=== PATIENT | female | born 1975 | race Caucasian/White ===

== ENCOUNTER 2023-11-17 09:52 | Emergency (ER) | payer BC, SELFPAY ==
[2023-11-17 10:00] VITALS: BP 116/83; PULSE 70; RESP 18; TEMP 36.4; O2SAT 96; BMI 31.1
--- NOTE | 2023-11-17 10:20 | EXP.UTC ---
Discharge Plan Disposition Patient Disposition: Home, Self-Care Condition: Good Prescriptions Prescriptions: New prednisone 10 mg tablet 10 mg PO BID Qty: 10 0RF amoxicillin-pot clavulanate 875-125 mg Tablet 1 tab PO Q12H Qty: 20 0RF No Action Mavyret 100-40 mg tablet 1 tab PO DAILY Referrals Follow up/Referrals: Finn Schmidt MD [Primary Care Provider] - See instructions Activity Restrictions/Add. Instructions Additional Instructions/Restrictions: Start oral antibiotics and steriods tomorrow Follow up with your Family Doctor if no improvement or any worsening of symptoms Make sure to drink plenty of fluids Straight to ER if any life threatening symptoms Clinical Impressions Clinical Impression: Sinusitis Qualifiers: Sinusitis location: unspecified location Chronicity: unspecified Qualified Code(s): J32.9 - Chronic sinusitis, unspecified Otitis media Qualifiers: Otitis media type: unspecified Laterality: right Qualified Code(s): H66.91 - Otitis media, unspecified, right ear Instructions Patient Instructions: Ear Infections (Alternative Therapy), Sinusitis, Middle Ear Infection, DI for Sinusitis Discharge ED Provider: Yancy Hannah [facility] General Stated complaint: Rt ear pain, swelling Mode of Arrival: Ambulatory Source of Information: Patient Limitations: No Limitations Time Seen by Provider: 11/17/23 10:20 Description of Symptoms (Recalled from Triage Doc. by RN): Pt has been having right ear pain, and right sided facial swelling. HEENT Symptoms (Recalled from RN notes): Yes Resp Symptoms (Recalled from RN notes): No Skin Symptoms (Recalled from RN notes): No MS Symptoms (Recalled from RN notes): No Functional Status (Recalled from RN notes): n/a History of Present Illness Provider Complaint: Patient states that she has been having sinus pain and pressure and pain and pressure in her right ear States that she has been fighting it for about a week but noticed she looked puffy under her right eye so she came in worried she may be having some swelling so she came in Related Data Home Medications Medication Instructions Recorded Confirmed glecaprevir 100 mg-pibrentasvir 40 1 tab PO DAILY 11/17/23 11/17/23 mg tablet (Mavyret) Previous Rx's Medication Instructions Recorded amoxicillin 875 mg-potassium 1 tab PO Q12H #20 tabs 11/17/23 clavulanate 125 mg tablet prednisone 10 mg tablet 10 mg PO BID #10 tabs 11/17/23 Allergies Allergy/AdvReac Type Severity Reaction Status Date / Time No Known Allergies Allergy Verified 11/17/23 10:09 Worker's Comp Is this a Worker's Comp case?: No [facility] Disclaimer: The information contained in this section may have been updated after the patient was seen, as this information can be updated by other users. Social History Smoking Status: Current every day smoker tobacco type: cigarettes alcohol intake: never current occupational status: employed Travel in the last 8 weeks: None ROS Obtained: Yes All systems reviewed & no additional complaints except as documented and Yes Systems reviewed as appropriate & no additional complaints except as documented Constitutional Constitutional: Reports system reviewed and no additional complaints, except as documented and Reports as per HPI ENT Ears, Nose, Mouth, and Throat: Reports system reviewed and no additional complaints, except as documented, Reports as per HPI, Reports otalgia, Reports sinus pain and Reports sinus pressure Cardiovascular Cardiovascular: Reports system reviewed and no additional complaints, except as documented and Reports as per HPI Respiratory Respiratory: Reports system reviewed and no additional complaints, except as documented and Reports as per HPI Physical Exam General General appearance: alert and in no apparent distress ENT ENT exam: Present mucous membranes moist Expanded ENT Exam TM/Canal exam: Right TM: erythema and bulging Nose exam: Present sinus tenderness Respiratory Respiratory exam: Present normal lung sounds bilaterally; Absent respiratory distress or wheezes Cardiovascular Cardiovascular exam: Present regular rate, normal rhythm and normal heart sounds Neurological Exam Neurological exam: Present alert, oriented X3 and normal gait Medical Decision Making [place] Inquiry Pt receiving controlled substance: No [place] was queried for this patient: No Vital Signs: 11/17/23 10:00 Temperature 97.6 F Temperature Source Oral Pulse Rate [Right Radial] 70 Respiratory Rate 18 Blood Pressure [Right Arm] 116/83 Blood Pressure Mean [Right Arm] 94 Blood Pressure Source [Right Arm] Automatic Cuff Blood Pressure Position [Right Arm] Sitting 02 Sat by Pulse Oximetry 96 Oxygen Delivery Method Room Air
[2023-11-17] MEDS: METHYLPREDNISOLONE SOD SUCC 125MG VIAL 125 MG IM (10:30)
[2023-11-17] MEDS: LIDOCAINE 1% 5ML PF VIAL IM (10:30)
[2023-11-17] MEDS: cefTRIAXone 1GM VIAL 1 GM IM (10:30)
[2023-11-17 11:04] VITALS: BP 116/83; PULSE 70; RESP 18; TEMP 36.4; O2SAT 96
== END 2023-11-17 11:03 | disposition home or self-care (01) ==
PROVIDERS: Emergency Provider Nurse Practitioner; PCP Family Medicine
DX: H66.91 Otitis media, unspecified, right ear (principal); J32.9 Chronic sinusitis, unspecified; R22.0 Localized swelling, mass and lump, head; F17.200 Nicotine dependence, unspecified, uncomplicated
CPT/HCPCS: 96372; 99204; 99212; G0463; J0696

== ENCOUNTER 2024-02-21 18:55 | Observation (INO) | payer BC, SELFPAY ==
[2024-02-21 18:55] VITALS: BP 123/81; PULSE 86; RESP 18; TEMP 36.8; O2SAT 96; BMI 32.5
[2024-02-21 18:59] VITALS: BMI 32.5
--- NOTE | 2024-02-21 19:00 | ECG_ITS ---
APPROVED REPORT Exam: Resting ECG HR:96 bpm ECG Measurements Heart Rate 96 AXES CA 185 P 62 QRSd 80 QRS 62 QT 328 T 63 QTc 382 Conclusion SINUS RHYTHM NORMAL ECG UNCONFIRMED REPORT Electronically signed by : Mu Guzman, 02/21/2024 22:58:02
--- NOTE | 2024-02-21 19:00 | XR_ITS ---
PROCEDURE INFORMATION: Exam: XR Chest Exam date and time: 02/21/2024 7:17 PM Age: 48 years old Clinical indication: Pain; Chest pressure; Additional info: Cp TECHNIQUE: Imaging protocol: Radiologic exam of the chest. Views: 1 view. COMPARISON: No relevant prior studies available. FINDINGS: Lungs: Unremarkable. No consolidation. Pleural spaces: Unremarkable. No pleural effusion. No pneumothorax. Heart/Mediastinum: Unremarkable. No cardiomegaly. Bones/joints: Unremarkable. IMPRESSION: No acute findings.
[2024-02-21 19:08] LABS: Basophils # 0.2 K/mm3 (0-0.2); Basophils % 1.7 % (0.1-2.0); Chloride 108 mmol/L (98-107); Eosinophils # 0.3 K/mm3 (0.0-0.4); Eosinophils % 3.6 % (0.1-12.0); Hemoglobin 14.2 g/dL (12.2-16.2); Lymphocytes # 3.7 K/mm3 (0.7-4.5); Mean Corpuscular HGB Conc 33.1 g/dL (31.8-35.4); Mean Corpuscular Hemoglobin 33.6 pg (27.0-31.2); Mean Corpuscular Volume 101.6 fl (81-99); Mean Platelet Volume 8.9 fl (7.4-10.4); Monocytes # 0.6 K/mm3 (0.1-1.0); Monocytes % 6.9 % (1.7-9.3); Neutrophils # 4.1 K/mm3 (1.8-7.8); Neutrophils % 45.9 % (37.0-80.0); Platelet Count 236 K/mm3 (142-424); Potassium 4.2 mmoL/L (3.5-5.1); Red Blood Count 4.23 M/mm3 (4.20-5.40); Red Cell Distribution Width 13.3 % (11.5-17.5); Sodium 141 mmol/L (136-145); White Blood Count 8.8 K/mm3 (4.8-10.8)
[2024-02-21 19:10] LABS: Blood Urea Nitrogen 20 mg/dl (7-17); Creatinine Clearance Estimated 103 mL/min (50-200); Estimated Glomerular Filt Rate 67 ml/min (>60); GFR (African American) 81 ML/MIN (>60)
[2024-02-21 19:11] LABS: Alanine Aminotransferase 24 U/L (12-78); Albumin Level 4.4 g/dl (3.5-5.0); Albumin/Globulin Ratio 1.5 (1.1-1.8); Alkaline Phosphatase 81 U/L (38-126); Anion Gap 10.2 mEq/L (5-15); Aspartate Amino Transferase 34 U/L (14-36); Bilirubin,Total 0.2 mg/dl (0.2-1.3); Calcium 9.8 mg/dl (8.4-10.2); Carbon Dioxide 27 mmol/L (22.0-30.0); Glucose 102 mg/dl (74-100); Total Protein,Serum 7.4 g/dl (6.3-8.2)
--- NOTE | 2024-02-21 19:16 | ED_ITS ---
<Statement entered by Piper Guzman MD - 02/21/24 22:55> I was consulted by the ANGELIA, and we discussed the complexity of the problems being addressed. I approved the treatment and management plan for this patient's care in the emergency department, thus performing a substantive portion of the medical decision making. Piper Guzman MD, RAMIRO, FACEP Discharge Plan Disposition Patient Disposition: Admitted Condition: Good Chief Complaint: Chest Pain Prescriptions Prescriptions: No Action Mavyret 100-40 mg tablet 1 tab PO DAILY prednisone 10 mg tablet 10 mg PO BID Qty: 10 0RF amoxicillin-pot clavulanate 875-125 mg Tablet 1 tab PO Q12H Qty: 20 0RF Referrals Follow up/Referrals: Provider,MD Meseret [Referring] - See instructions Clinical Impressions Clinical Impression: Acute intractable headache, Abnormal CT scan of head Discharge ED Provider: Piper Guzman [facility] General Chief Complaint: Chest Pain Stated Complaint: CHEST PAIN Time Seen by Provider: 02/21/24 19:16 Mode of Arrival: Ambulatory Source of Information: Patient Limitations: No Limitations Description of Symptoms (Recalled from ER Triage Doc. by RN): chest pain earlier today,headache History of Present Illness HPI narrative: Patient presents for evaluation of headache and chest pain. Patient states that she has had headache for a week. She rates the pain is up to 8 or 9 out of 10 scale. Pain has not been constant has been intermittent without aura. She states it feels like swelling on the top of her head. She has never had symptoms like this before. Today she stated that while she was having a headache she started having fluttering in her chest that felt like pressure. She does not have that symptom currently. She does however report headache. She denies fever chills hemoptysis hematochezia melena nausea vomiting diarrhea phonophobia photophobia Related Data Home Medications Medication Instructions Recorded Confirmed glecaprevir 100 mg-pibrentasvir 40 1 tab PO DAILY 11/17/23 11/17/23 mg tablet (Mavyret) Previous Rx's Medication Instructions Recorded amoxicillin 875 mg-potassium 1 tab PO Q12H #20 tabs 11/17/23 clavulanate 125 mg tablet prednisone 10 mg tablet 10 mg PO BID #10 tabs 11/17/23 Allergies Allergy/AdvReac Type Severity Reaction Status Date / Time No Known Allergies Allergy Verified 11/17/23 10:09 [facility] Disclaimer: The information contained in this section may have been updated after the patient was seen, as this information can be updated by other users. Social History (Updated 11/17/23 @ 10:54 by Yancy Hannah APRN) Smoking Status: Former smoker tobacco type: cigarettes alcohol intake: never current occupational status: employed Travel in the last 8 weeks: None ROS Obtained: Yes Systems reviewed as appropriate & no additional complaints except as documented Physical Exam General General appearance: alert and in no apparent distress Head Head exam: atraumatic and normal inspection Eye Eye exam: Present normal appearance, PERRL and EOMI ENT ENT exam: Present normal exam, normal oropharynx and mucous membranes moist Neck Neck exam: Present normal inspection, full ROM and trachea midline; Absent tenderness, meningismus or lymphadenopathy Chest Chest inspection: Present normal inspection and symmetric chest wall rise Respiratory Respiratory exam: Present normal lung sounds bilaterally; Absent accessory muscle use Cardiovascular Cardiovascular exam: Present regular rate, normal rhythm, normal heart sounds, +S1 and +S2 Abdominal Exam Abdominal exam: Present soft and normal bowel sounds; Absent tenderness, guarding or rebound Extremities Exam Extremities exam: Present normal inspection and full ROM Back Exam Back exam: Present normal inspection and full ROM; Absent tenderness Neurological Exam Neurological exam: Present alert, oriented X3 and CN II-XII intact Psychiatric Psychiatric exam: Present normal affect and normal mood Skin Skin exam: Present warm, dry and normal color HEART Score HEART Score HEART Score assessment performed?: Yes History (anamnesis): Slightly suspicious ECG: Normal Age: 45-65 years Risk factors: 1-2 risk factors Troponin: </= normal limit HEART Score: 2 Critical Care Critical Care Time Critical Care Time: No Medical Decision Making Medical Records Medical records reviewed: Yes I reviewed the patient's medical records. [place] Inquiry Pt receiving controlled substance: No Vital Signs Vital Signs: 02/21/24 18:55 02/21/24 19:30 02/21/24 20:00 Temperature 98.3 F Temperature Source Oral Pulse Rate 88 85 Pulse Rate [Right] 86 Respiratory Rate 18 20 18 Blood Pressure 116/79 116/83 Blood Pressure [Right Arm] 123/81 Blood Pressure Mean [Right Arm] 95 02 Sat by Pulse Oximetry 96 95 95 Oxygen Delivery Method Room Air Room Air Room Air 02/21/24 20:30 02/21/24 21:54 Temperature Temperature Source Pulse Rate 79 77 Pulse Rate [Right] Respiratory Rate 18 18 Blood Pressure 117/77 103/70 L Blood Pressure [Right Arm] Blood Pressure Mean [Right Arm] 02 Sat by Pulse Oximetry 97 94 L Oxygen Delivery Method Room Air Room Air Lab Data Lab results reviewed: Yes I reviewed the patient's lab results. Labs: Lab Results 02/21/24 18:55: WBC 8.8, RBC 4.23, Hgb 14.2, Hct 43.0, MCV 101.6 H, MCH 33.6 H, MCHC 33.1, RDW 13.3, Plt Count 236, MPV 8.9, Neut % (Auto) 45.9, Lymph % (Auto) 42.0, [place] % (Auto) 6.9, Eos % (Auto) 3.6, Baso % (Auto) 1.7, Neut # (Auto) 4.1, Lymph # (Auto) 3.7, [place] # (Auto) 0.6, Eos # (Auto) 0.3, Baso # (Auto) 0.2, PT 10.1, INR 0.93, Sodium 141, Potassium 4.2, Chloride 108 H, Carbon Dioxide 27, Anion Gap 10.2, BUN 20 H, Creatinine 0.90, Estimated Creat Clear 103, Estimated GFR 67, Est GFR ( Amer) 81, Glucose 102 H, Calcium 9.8, Magnesium 1.8, Total Bilirubin 0.2, AST 34, ALT 24, Alkaline Phosphatase 81, Troponin I < 0.01, Total Protein 7.4, Albumin 4.4, Globulin 3.0, Albumin/Globulin Ratio 1.5, TSH 3.70 02/21/24 18:55 02/21/24 18:55 Response Orders (Tests/Meds): ED MEDICATIONS Generic Name Dose Route Start Last Admin Trade Name Freq PRN Reason Stop Dose Admin Sodium Chloride 10 ml 02/21/24 19:01 Sodium Chloride 0.9% 10ml Flush Syringe IV 03/22/24 19:00 NEEDED PRN Maintain IV Site Discontinued Medications Generic Name Dose Route Start Last Admin Trade Name Freq PRN Reason Stop Dose Admin Acetaminophen 1,000 mg 02/21/24 19:28 02/21/24 20:19 Acetaminophen 1,000mg/100ml Vial IV 02/21/24 19:29 1,000 mg ONCE ONE Administration Dexamethasone Sodium Phosphate 10 mg 02/21/24 19:28 02/21/24 20:21 Dexamethasone 4mg/Ml 5ml Mdv IV 02/21/24 19:29 10 mg ONCE ONE Administration Diphenhydramine HCl 50 mg 02/21/24 19:28 02/21/24 20:23 Diphenhydramine 50mg/Ml Vial IV 02/21/24 19:29 50 mg ONCE ONE Administration Lactated Ringer's 1,000 mls @ 999 mls/hr 02/21/24 19:28 02/21/24 20:17 Lactated Ringer's 1000 Ml Bag IV 02/21/24 20:28 999 mls/hr .Q1H1M ONE Administration Ketorolac Tromethamine 15 mg 02/21/24 19:28 02/21/24 20:24 Ketorolac 30mg/Ml Vial IV 02/21/24 19:29 15 mg ONCE ONE Administration Prochlorperazine Edisylate 10 mg 02/21/24 19:28 02/21/24 20:26 Prochlorperazine 10mg/2ml Vial IV 02/21/24 19:29 10 mg ONCE ONE Administration ORDERS Category Date Time Status CT head/brain wo con Stat Cat Scan 02/21/24 19:31 Completed CXR --portable [XR chest portable] Stat Exams 02/21/24 19:00 Completed Complete Blood Count Auto Diff Stat Lab 02/21/24 18:55 Completed Comprehensive Metabolic Panel Stat Lab 02/21/24 18:55 Completed INR [Prothrombin Time INR] Stat Lab 02/21/24 18:55 Completed Magnesium Stat Lab 02/21/24 18:55 Completed TSH [Thyroid Stimulating Hormone] Stat Lab 02/21/24 18:55 Completed Troponin I Q3H Lab 02/21/24 22:00 Ordered Troponin I Q3H Lab 02/22/24 01:00 Ordered Troponin I Stat Lab 02/21/24 18:55 Completed MDM Narrative Medical Decision Narrative: In summary patient is a 48-year-old female who presents to the emergency department for evaluation of headache and chest pain. Patient is dynamically stable upon arrival, afebrile. Zickel exam is unremarkable and nonfocal including no reproducible chest pain on palpation, no nuchal rigidity or meningeal signs, pupils equal round reactive to light without icterus. Differential diagnosis includes headache versus meningitis versus space- occupying lesion versus chest pain versus anxiety versus palpitations etc. Initial workup will be conducted with hematologic labs CT scan of the head, EKG, chest x-ray. Initial interventions include crystalloid bolus, Compazine Benadryl Decadron Toradol Tylenol. Initial workup reviewed by me shows that her hematologic labs are nonactionable. However radiology reads her CT scan of the head without contrast with an undetermined significance abnormality in the ramirez and recommend an emergent MRI MRA with and without contrast. Upon repeat evaluation patient reports no improvement in her headache symptoms but no worsening either. I had interactive discussion with the patient regarding her symptoms and findings and she is agreeable for transfer to any facility that we will except her she has no preference. NIH stroke score 0 Glascow coma score is 15. Given this had interactive discussion with the stroke navigator at [facility] and the neurologist on-call regarding patient management, however they do not have any beds but the patient has been placed on the wait list. Given that I have had a interactive discussion with the [facility] [place] about patient management. The neurosurgeon on-call felt that this did not represent an acute surgical or emergent surgical problem however even if it were a surgical problem at all it was in a nonoperative location in the brainstem. He recommended outpatient MRI soon as possible given the patient had no focal neurologic findings or possible admission here for inpatient MRI in the morning given that she has continued headache signs. Given that I had an interactive discussion with hospital medicine regarding patient management and they have agreed for admission for further evaluation and care.
[2024-02-21 19:27] LABS: Troponin I < 0.01 ng/ml (0.00-0.034)
[2024-02-21 19:30] VITALS: BP 116/79; PULSE 88; RESP 20; O2SAT 95
--- NOTE | 2024-02-21 19:31 | CT_ITS ---
PROCEDURE INFORMATION: Exam: CT Head Without Contrast Exam date and time: 02/21/2024 7:38 PM Age: 48 years old Clinical indication: Pain; Headache TECHNIQUE: Imaging protocol: Computed tomography of the head without contrast. Radiation optimization: All CT scans at this facility use at least one of these dose optimization techniques: automated exposure control; mA and/or kV adjustment per patient size (includes targeted exams where dose is matched to clinical indication); or iterative reconstruction. COMPARISON: No relevant prior studies available. FINDINGS: Brain: There is possible inhomogeneous low-density process within the central pontine region with associated potential enlargement of the ramirez area and effacement of the adjacent perimesencephalic cisterns resulting in a tight posterior fossa. The remainder of the brain is otherwise unremarkable. No intracranial hemorrhage. Cerebral ventricles: No ventriculomegaly. Paranasal sinuses: Visualized sinuses are unremarkable. No fluid levels. Mastoid air cells: Visualized mastoid air cells are well aerated. Bones: Unremarkable. No acute fracture. Soft tissues: Unremarkable. IMPRESSION: 1. Possible developing abnormality of the central ramirez region with associated expansion of the ramirez and effacement of the adjacent perimesencephalic cisterns resulting in a tight posterior fossa.. This finding not well assessed with this noncontrast CT and developing mass or other process not excluded. For this reason further assessment with emergent MRI of the brain with and without contrast is advised to confirm or exclude abnormality in this region. 2. No other abnormalities identified.
[2024-02-21 19:42] LABS: Magnesium 1.8 mg/dl (1.6-2.3)
[2024-02-21 19:48] LABS: INR 0.93 (0.9-1.1); Prothrombin Time 10.1 seconds (10.1-12.5)
[2024-02-21 20:00] VITALS: BP 116/83; PULSE 85; RESP 18; O2SAT 95
[2024-02-21] MEDS: LACTATED RINGERS 1000ML 1,000 ML 999 ML IV (20:17)
[2024-02-21] MEDS: ACETAMINOPHEN 1,000MG/100ML VIAL 1000 MG IV (20:19)
[2024-02-21] MEDS: DEXAMETHASONE 4MG/ML 5ML MDV 10 MG IV (20:21)
[2024-02-21] MEDS: diphenhydrAMINE 50MG/ML VIAL 50 MG IV (20:23)
[2024-02-21] MEDS: KETOROLAC 30MG/ML VIAL 15 MG IV (20:24)
[2024-02-21] MEDS: PROCHLORPERAZINE 10MG/2ML VIAL 10 MG IV (20:26)
[2024-02-21 20:30] VITALS: BP 117/77; PULSE 79; RESP 18; O2SAT 97
--- NOTE | 2024-02-21 21:50 | PC.NURSE ---
call to [facility] re: transfer to their facility, David MORAES on phone with stroke navigator at this time
[2024-02-21 21:54] VITALS: BP 103/70; PULSE 77; RESP 18; O2SAT 94
--- NOTE | 2024-02-21 22:13 | PC.NURSE ---
CALL BACK FROM [facility]: CALLING THEM BACK IF NEEDS TO BE PUT ON WAITLIST. SPOKE WITH CELESTE.
--- NOTE | 2024-02-21 22:24 | PC.NURSE ---
return call from [facility]
--- NOTE | 2024-02-21 22:50 | PC.NURSE ---
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
--- NOTE | 2024-02-21 23:19 | EXP.HP ---
History of Present Illness *Admission Date: 02/21/24 *Reason for visit:: headache *History of present illness: This is a 48F obese with apparent no medical history presented to ED complaining of headache for a week. She rates the pain is up to 8 or 9 out of 10 scale. Pain has not been constant has been intermittent without aura. She states it feels like swelling on the top of her head. She has never had symptoms like this before. Today she stated that while she was having a headache she started having fluttering in her chest that felt like pressure. She does not have that symptom currently. Patient also reported family history of brain cancer on two of her sibling. One sibling saddly past, the other sister in currently undergoing treatment. last month patient was seen at ED for similarity of the symptoms. was diagnosed with Otitis media and sinusitis. She denies fever chills hemoptysis hematochezia melena nausea vomiting diarrhea phonophobia photophobia. Admitted for further work up. [facility] Disclaimer: The information contained in this section may have been updated after the patient was seen, as this information can be updated by other users. Family History (Updated 02/22/24 @ 00:14 by Sandra Friedman RN) Other Family history of cancer Social History (Updated 02/22/24 @ 00:14 by Sandra Friedman RN) Smoking Status: Former smoker tobacco type: cigarettes alcohol intake: never current occupational status: employed Travel in the last 8 weeks: None Review of Systems Review of Systems Review of systems:: pertinent systems reviewed and negative unless documented below Meds Home Medications and Allergies Home Medications Medication Instructions Recorded Confirmed Type amoxicillin 875 mg-potassium 1 tab PO Q12H #20 tabs 11/17/23 Rx clavulanate 125 mg tablet glecaprevir 100 mg-pibrentasvir 40 1 tab PO DAILY 11/17/23 11/17/23 History mg tablet (Mavyret) prednisone 10 mg tablet 10 mg PO BID #10 tabs 11/17/23 Rx New Prescriptions to Start Prescriptions: Allergies Allergy/AdvReac Type Severity Reaction Status Date / Time No Known Allergies Allergy Verified 11/17/23 10:09 Exam Data for Last 24 hours Vital signs and Labs for Last 24 Hours: Temp Pulse Resp BP Pulse Ox O2 Del Method 98.3 F 77 18 103/70 L 94 L Room Air 02/21/24 18:55 02/21/24 21:54 02/21/24 21:54 02/21/24 21:54 02/21/24 21:54 02/21/24 21:54 Laboratory Results - last 24 hr 02/21/24 18:55: WBC 8.8, RBC 4.23, Hgb 14.2, Hct 43.0, MCV 101.6 H, MCH 33.6 H, MCHC 33.1, RDW 13.3, Plt Count 236, MPV 8.9, Neut % (Auto) 45.9, Lymph % (Auto) 42.0, [place] % (Auto) 6.9, Eos % (Auto) 3.6, Baso % (Auto) 1.7, Neut # (Auto) 4.1, Lymph # (Auto) 3.7, [place] # (Auto) 0.6, Eos # (Auto) 0.3, Baso # (Auto) 0.2, PT 10.1, INR 0.93, Sodium 141, Potassium 4.2, Chloride 108 H, Carbon Dioxide 27, Anion Gap 10.2, BUN 20 H, Creatinine 0.90, Estimated Creat Clear 103, Estimated GFR 67, Est GFR ( Amer) 81, Glucose 102 H, Calcium 9.8, Magnesium 1.8, Total Bilirubin 0.2, AST 34, ALT 24, Alkaline Phosphatase 81, Troponin I < 0.01, Total Protein 7.4, Albumin 4.4, Globulin 3.0, Albumin/Globulin Ratio 1.5, TSH 3.70 I & O for Last 24 hours: Intake & Output 02/18/24 02/19/24 02/20/24 02/21/24 23:59 23:59 23:59 23:59 Weight 86.183 kg Constitutional Constitutional: moderate distress and obese *Routine HEENT Exam Head: Present normocephalic Eye: Present EOMI and PERRL ENT: Present mucous membranes moist *Routine Neck Exam Neck: Present supple and full ROM; Absent lymphadenopathy, trauma or meningismus *Routine Respiratory Exam Respiratory: Present CTA bilaterally *Routine Cardiovascular Exam Cardiovascular: Present RRR *Routine Abdominal Exam Abdominal: Present soft and normoactive bowel sounds; Absent tenderness *Routine Rectal Exam Rectal:: deferred *Routine Genitalia Exam Genitalia:: deferred *Routine Extremities Exam Extremities: Absent cyanosis, clubbing or edema *Routine Skin Exam Skin: Present warm; Absent rash *Routine Neurological Exam Neurological: Present alert and oriented X3 H&P: Result Imaging and Cardiology EKG: Status: image reviewed by me, Preliminary report and final report CT scan - head: Status: image reviewed by me, Preliminary report and final report Assessment and Plan *Assessment and plan (1) Abnormal CT scan of head: Status: Acute Category: Medical Code(s): R93.0 - Abnormal findings on diagnostic imaging of skull and head, not elsewhere classified (2) Acute intractable headache: Status: Acute Qualifiers: Headache type: unspecified Qualified Code(s): R51.9 - Headache, unspecified Category: Medical Code(s): R51.9 - Headache, unspecified Plan 48F obese with apparent no medical history presented to ED complaining of headache for a week. She rates the pain is up to 8 or 9 out of 10 scale. Pain has not been constant has been intermittent without aura. She states it feels like swelling on the top of her head. On my evaluation patient reports no improvement in her headache symptoms but no worsening either. NIH stroke score 0 Glascow coma score is 15. Initial workup shows that her hematologic labs are nonactionable. However radiology reads her CT scan of the head without contrast with an undetermined significance abnormality in the ramirez and recommend an emergent MRI MRA with and without contrast. Findings discussed with ED. physician at ED consulted with other facility. patient on waiting list for transfers. neurosurgeon, recommended MRI. Due to the nonresolution of the symptoms, agree with admission. Plan as follow: Acute intractable headache with abnormal CT of the head: Conditions to rule out: Chronic lumphocytic inflammation of the pontine Diffuse intrinsic pontine glioma's Any other type of brain tumor or mass Admit patient for continuous monitoring[facility] of the head reviewed hemorrhagic disease ruled out Obtain CT of the head stat if neuro condition deteriorates MRI of the brain ordered Started on Solu-Medrol 1 g IV daily x 3 Pain management. Tylenol and morphine as needed Nausea and vomiting management as needed Repeat labs in the morning Continue IV hydration Patient was placing on waiting list for neurology transfer. However the location of the lesion might not be a candidate for surgical intervention. Goal of therapy is to control pain and obtain an MRI for complete to diagnosis.
--- NOTE | 2024-02-21 23:29 | PC.NURSE ---
CONTACTED HOSPITALIST FOR UPDATE ON POC. STATES HE IS ADMITTING HER W/DX OF BENZ.
--- NOTE | 2024-02-21 23:32 | PC.NURSE ---
CONTACTED [facility],CHILD [employer]IAL WORKER FOR ADMIT BED. PT DX: HEADACHE, ADMIT TO HOSPITALIST.
--- NOTE | 2024-02-21 23:38 | PC.NURSE ---
Report called to CHUY Floyd
--- NOTE | 2024-02-21 23:38 | PC.NURSE ---
SENT [facility] PER REQUEST OF LAB
[2024-02-22] VITALS: BP 103/78; PULSE 76; PULSE 80; RESP 12; TEMP 36.8; O2SAT 95
[2024-02-22 00:06] VITALS: BP 140/73; PULSE 70; RESP 16; TEMP 36.8; O2SAT 95
[2024-02-22 00:18] LABS: Troponin I < 0.01 ng/ml (0.00-0.034)
[2024-02-22] MEDS: 0.9 % SODIUM CHLORIDE 1000ML 1,000 ML 75 ML IV (00:18)
[2024-02-22 02:14] LABS: Troponin I < 0.01 ng/ml (0.00-0.034)
[2024-02-22 04:00] VITALS: BP 104/73; PULSE 88; PULSE 90; RESP 16; TEMP 36.8; O2SAT 97; BMI 32.3
[2024-02-22 06:26] LABS: Chloride 108 mmol/L (98-107); Potassium 4.2 mmoL/L (3.5-5.1); Sodium 141 mmol/L (136-145)
[2024-02-22 06:28] LABS: Alanine Aminotransferase 37 U/L (12-78); Aspartate Amino Transferase 41 U/L (14-36); Blood Urea Nitrogen 20 mg/dl (7-17); Creatinine Clearance Estimated 115 mL/min (50-200); Estimated Glomerular Filt Rate 76 ml/min (>60); GFR (African American) 92 ML/MIN (>60)
[2024-02-22 06:29] LABS: Albumin Level 4.1 g/dl (3.5-5.0); Albumin/Globulin Ratio 1.4 (1.1-1.8); Alkaline Phosphatase 81 U/L (38-126); Anion Gap 13.2 mEq/L (5-15); Bilirubin,Total 0.2 mg/dl (0.2-1.3); Calcium 9.3 mg/dl (8.4-10.2); Carbon Dioxide 24 mmol/L (22.0-30.0); Cholesterol 247 mg/dl (140-200); Globulin 2.9 g/dL (1.3-3.2); Glucose 213 mg/dl (74-100); Phosphorous 3.1 mg/dl (2.5-4.5); Triglycerides 75 mg/dl (30-150); VLDL Cholesterol 15 mg/dL (0-40)
[2024-02-22 06:30] LABS: Chol/HDL Ratio 4.8 (1-3.5); HDL Cholesterol 51 mg/dl (40-60); Magnesium 1.7 mg/dl (1.6-2.3)
[2024-02-22 06:31] LABS: Basophils % 0.3 % (0.1-2.0); Hematocrit 42.8 % (37.0-47.0); Hemoglobin 14.2 g/dL (12.2-16.2); Lymphocytes # 0.9 K/mm3 (0.7-4.5); Lymphocytes % 14.1 % (10-50); Mean Corpuscular HGB Conc 33.3 g/dL (31.8-35.4); Mean Corpuscular Hemoglobin 33.6 pg (27.0-31.2); Mean Corpuscular Volume 100.9 fl (81-99); Mean Platelet Volume 8.9 fl (7.4-10.4); Monocytes # 0.1 K/mm3 (0.1-1.0); Monocytes % 0.9 % (1.7-9.3); Neutrophils # 5.6 K/mm3 (1.8-7.8); Neutrophils % 84.6 % (37.0-80.0); Platelet Count 228 K/mm3 (142-424); Red Blood Count 4.24 M/mm3 (4.20-5.40); Red Cell Distribution Width 13.3 % (11.5-17.5); White Blood Count 6.6 K/mm3 (4.8-10.8)
[2024-02-22 07:47] VITALS: BP 114/64; PULSE 71; RESP 14; TEMP 36.8; O2SAT 97
[2024-02-22 08:00] VITALS: PULSE 95
--- NOTE | 2024-02-22 08:36 | MR_ITS ---
FINAL REPORT TECHNIQUE: Multiplanar MR, without and with contrast administration CLINICAL HISTORY: HEADACHE COMPARISON: 02/21/2024 FINDINGS: There is significant motion artifact. No abnormal signal is seen within the ramirez or space-occupying lesion. There are a few scattered, subcortical white matter signal changes bilaterally in the frontal lobes likely due to chronic microvascular change. Chronic lacunar infarcts are seen in the right frontal lobe. Diffusion sequences show no signal abnormalities to indicate acute infarct. The brain parenchyma is homogeneous with normal signal pattern. Ventricles are normal. No edema or hemorrhage is seen. Major vessel flow-voids are intact. Following contrast administration, there is no mass or abnormal parenchymal enhancement. IMPRESSION: Nonspecific white matter signal changes likely due to chronic microvascular ischemia. No evidence of pontine lesion or abnormal enhancement. Reviewed, Interpreted and Dictated by Komal Zacarias MD Transcribed by Sabiha Crabtree Authenticated and . [facility]
[2024-02-22] MEDS: METHYLPREDN SOD SUCC 1,000 MG in 0.9 % SODIUM CHLORIDE 250 ML 500 MG IV (09:01)
[2024-02-22] MEDS: NICOTINE 21MG/24HR PATCH 21 MG TD (09:06)
--- NOTE | 2024-02-22 10:20 | HMH.PHAINT1 ---
Pharmacy Intervention Comments: MEDICATION RECONCILIATION COMPLETED ON PATIENT USING EXTERNAL FILL HISTORY FROM PHARMACY. -JOSE DRISCOLL, ARYAND
[2024-02-22] MEDS: GADOTERIDOL INJ 20ML SYRINGE 17 ML IV (10:21)
[2024-02-22] MEDS: SODIUM CHLORIDE 0.9% 10ML SYR (RAD ONLY) 10 ML IV (10:21)
[2024-02-22 11:46] VITALS: BP 102/77; PULSE 95; RESP 16; TEMP 36.8; O2SAT 96
[2024-02-22] MEDS: KETOROLAC 30MG/ML VIAL 30 MG IV (15:26)
--- NOTE | 2024-02-22 16:20 | P.DS_ITS ---
General Admission date:: 02/22/24 Discharge date: 02/22/24 HPI HPI HPI: This is a 48F obese with apparent no medical history presented to ED complaining of headache for a week. She rates the pain is up to 8 or 9 out of 10 scale. Pain has not been constant has been intermittent without aura. She states it feels like swelling on the top of her head. She has never had symptoms like this before. Today she stated that while she was having a headache she started having fluttering in her chest that felt like pressure. She does not have that symptom currently. Patient also reported family history of brain cancer on two of her sibling. One sibling saddly past, the other sister in currently undergoing treatment. last month patient was seen at ED for similarity of the symptoms. was diagnosed with Otitis media and sinusitis. She denies fever chills hemoptysis hematochezia melena nausea vomiting diarrhea phonophobia photophobia. Admitted for further work up. Hospital Course Hospital Course Hospital Course: This is a 48F obese with apparent no medical history presented to ED complaining of headache for a week. She rates the pain is up to 8 or 9 out of 10 scale. Pain has not been constant has been intermittent without aura. She states it feels like swelling on the top of her head. She has never had symptoms like this before. Today she stated that while she was having a headache she started having fluttering in her chest that felt like pressure. She does not have that symptom currently. Patient also reported family history of brain cancer on two of her sibling. One sibling saddly past, the other sister in currently undergoing treatment. last month patient was seen at ED for similarity of the symptoms. was diagnosed with Otitis media and sinusitis. She denies fever chills hemoptysis hematochezia melena nausea vomiting diarrhea phonophobia photophobia. Admitted for further work up. patient had CT head which was abnormal, then Brain MRI with and w/o contrast was performed which came out normal, hoever headache slightly improved, but patient is requesting to be discharged and follow up with neurology as OP, patient was given neurology referral. On the date of discharge, the patient reported feeling stable. The patient was found not to be in any acute distress, and no new abnormalities on physical examination. Further, the patient expressed appropriate understanding of, and agreement with, the discharge recommendations, medications, and plan. Time spent 37 mins Exam Data for Last 24 hours Vital signs and Labs for Last 24 Hours: Temp Pulse Resp BP Pulse Ox O2 Del Method 98.2 F 95 H 16 102/77 L 96 Room Air 02/22/24 11:46 02/22/24 11:46 02/22/24 11:46 02/22/24 11:46 02/22/24 11:46 02/22/24 15:00 Laboratory Results - last 24 hr 02/21/24 18:55: WBC 8.8, RBC 4.23, Hgb 14.2, Hct 43.0, MCV 101.6 H, MCH 33.6 H, MCHC 33.1, RDW 13.3, Plt Count 236, MPV 8.9, Neut % (Auto) 45.9, Lymph % (Auto) 42.0, [place] % (Auto) 6.9, Eos % (Auto) 3.6, Baso % (Auto) 1.7, Neut # (Auto) 4.1, Lymph # (Auto) 3.7, [place] # (Auto) 0.6, Eos # (Auto) 0.3, Baso # (Auto) 0.2, PT 10.1, INR 0.93, Sodium 141, Potassium 4.2, Chloride 108 H, Carbon Dioxide 27, Anion Gap 10.2, BUN 20 H, Creatinine 0.90, Estimated Creat Clear 103, Estimated GFR 67, Est GFR ( Amer) 81, Glucose 102 H, Calcium 9.8, Magnesium 1.8, Total Bilirubin 0.2, AST 34, ALT 24, Alkaline Phosphatase 81, Troponin I < 0.01, Total Protein 7.4, Albumin 4.4, Globulin 3.0, Albumin/Globulin Ratio 1.5, TSH 3.70 02/21/24 23:37: Troponin I < 0.01 02/22/24 01:28: Troponin I < 0.01 02/22/24 05:43: WBC 6.6, RBC 4.24, Hgb 14.2, Hct 42.8, MCV 100.9 H, MCH 33.6 H, MCHC 33.3, RDW 13.3, Plt Count 228, MPV 8.9, Neut % (Auto) 84.6 H, Lymph % (Auto) 14.1, [place] % (Auto) 0.9 L, Eos % (Auto) 0.0 L, Baso % (Auto) 0.3, Neut # (Auto) 5.6, Lymph # (Auto) 0.9, [place] # (Auto) 0.1, Eos # (Auto) 0.0, Baso # (Auto) 0.0, Sodium 141, Potassium 4.2, Chloride 108 H, Carbon Dioxide 24, Anion Gap 13.2, BUN 20 H, Creatinine 0.80, Estimated Creat Clear 115, Estimated GFR 76, Est GFR ( Amer) 92, Glucose 213 H D, Calcium 9.3, Phosphorus 3.1, Magnesium 1.7, Total Bilirubin 0.2, AST 41 H, ALT 37 D, Alkaline Phosphatase 81, Total Protein 7.0, Albumin 4.1, Globulin 2.9, Albumin/Globulin Ratio 1.4, Triglycerides 75, Cholesterol 247 H, LDL Cholesterol Direct 141.50 H, VLDL Cholesterol 15, HDL Cholesterol 51, Cholesterol/HDL Ratio 4.8 H I & O for Last 24 hours: Intake & Output 02/19/24 02/20/24 02/21/24 02/22/24 23:59 23:59 23:59 23:59 Intake Total 1660 / 1660 Output Total 0 / 0 Balance 1660 / 1660 Weight 86.183 kg 85.956 kg Constitutional Constitutional: no acute distress *Routine HEENT Exam Head: Present normocephalic Eye: Present EOMI and PERRL ENT: Present mucous membranes moist *Routine Neck Exam Neck: Present supple; Absent lymphadenopathy *Routine Respiratory Exam Respiratory: Present CTA bilaterally *Routine Cardiovascular Exam Cardiovascular: Present RRR *Routine Abdominal Exam Abdominal: Present soft and normoactive bowel sounds; Absent tenderness *Routine Extremities Exam Extremities: Absent cyanosis, clubbing or edema *Routine Skin Exam Skin: Present warm; Absent rash *Routine Neurological Exam Neurological: Present alert and oriented X3 Results Data Completed and Pending Labs on day of discharge: Labs from last 24 hours 02/22/24 02/22/24 02/21/24 05:43 01:28 23:37 WBC 6.6 RBC 4.24 Hgb 14.2 Hct 42.8 MCV 100.9 H MCH 33.6 H MCHC 33.3 RDW 13.3 Plt Count 228 MPV 8.9 Neut % (Auto) 84.6 H Lymph % (Auto) 14.1 [place] % (Auto) 0.9 L Eos % (Auto) 0.0 L Baso % (Auto) 0.3 Neut # (Auto) 5.6 Lymph # (Auto) 0.9 [place] # (Auto) 0.1 Eos # (Auto) 0.0 Baso # (Auto) 0.0 PT INR Sodium 141 Potassium 4.2 Chloride 108 H Carbon Dioxide 24 Anion Gap 13.2 BUN 20 H Creatinine 0.80 Estimated Creat Clear 115 Estimated GFR 76 Est GFR ( Amer) 92 Glucose 213 H D Calcium 9.3 Phosphorus 3.1 Magnesium 1.7 Total Bilirubin 0.2 AST 41 H ALT 37 D Alkaline Phosphatase 81 Troponin I < 0.01 < 0.01 Total Protein 7.0 Albumin 4.1 Globulin 2.9 Albumin/Globulin Ratio 1.4 Triglycerides 75 Cholesterol 247 H LDL Cholesterol Direct 141.50 H VLDL Cholesterol 15 HDL Cholesterol 51 Cholesterol/HDL Ratio 4.8 H TSH 02/21/24 18:55 WBC 8.8 RBC 4.23 Hgb 14.2 Hct 43.0 MCV 101.6 H MCH 33.6 H MCHC 33.1 RDW 13.3 Plt Count 236 MPV 8.9 Neut % (Auto) 45.9 Lymph % (Auto) 42.0 [place] % (Auto) 6.9 Eos % (Auto) 3.6 Baso % (Auto) 1.7 Neut # (Auto) 4.1 Lymph # (Auto) 3.7 [place] # (Auto) 0.6 Eos # (Auto) 0.3 Baso # (Auto) 0.2 PT 10.1 INR 0.93 Sodium 141 Potassium 4.2 Chloride 108 H Carbon Dioxide 27 Anion Gap 10.2 BUN 20 H Creatinine 0.90 Estimated Creat Clear 103 Estimated GFR 67 Est GFR ( Amer) 81 Glucose 102 H Calcium 9.8 Phosphorus Magnesium 1.8 Total Bilirubin 0.2 AST 34 ALT 24 Alkaline Phosphatase 81 Troponin I < 0.01 Total Protein 7.4 Albumin 4.4 Globulin 3.0 Albumin/Globulin Ratio 1.5 Triglycerides Cholesterol LDL Cholesterol Direct VLDL Cholesterol HDL Cholesterol Cholesterol/HDL Ratio TSH 3.70 DS: Diagnosis Discharge Diagnosis (1) Abnormal CT scan of head: Status: Acute Code(s): R93.0 - Abnormal findings on diagnostic imaging of skull and head, not elsewhere classified (2) Acute intractable headache: Status: Acute Code(s): R51.9 - Headache, unspecified Qualifiers: Headache type: unspecified Qualified Code(s): R51.9 - Headache, unspecified Meds Home Medications and Allergies Home Medications Medication Instructions Recorded Confirmed Type buspirone 10 mg tablet 20 mg PO BID 02/22/24 02/22/24 History fluoxetine 40 mg capsule 40 mg PO DAILY 02/22/24 02/22/24 History meloxicam 15 mg tablet 15 mg PO DAILY 02/22/24 02/22/24 History prazosin 2 mg capsule 2 mg PO HS 02/22/24 02/22/24 History New Prescriptions to Start Prescriptions: Allergies Allergy/AdvReac Type Severity Reaction Status Date / Time No Known Allergies Allergy Verified 11/17/23 10:09 Discharge Plan Disposition Patient Disposition: Home, Self-Care Condition: Good Follow up Plan Follow up with: Finn Schmidt MD [Primary Care Provider] - 02/25/24 11:00 am Dara Benito MD [Staff Physician] - 06/06/24 1:30 pm Prescriptions/Medication Reconciliation: Continued fluoxetine 40 mg capsule 40 mg PO DAILY Patient Comments: TAKE 1 CAPSULE BY MOUTH EVERY DAY meloxicam 15 mg tablet 15 mg PO DAILY Patient Comments: TAKE 1 TABLET BY MOUTH EVERY DAY buspirone 10 mg tablet 20 mg PO BID Patient Comments: TAKE 2 TABLETS BY MOUTH TWICE A DAY prazosin 2 mg capsule 2 mg PO HS Patient Comments: TAKE ONE CAPSULE BY MOUTH AT NIGHT - DEACTIVATE 1MG - DOSE INCREASE Problem Reconciliation Problems Reviewed?: Yes Patient Discharge Instructions ACTIVITY: Ambulate as tolerated DIET: continue same diet Patient Instructions: DI for Headache Providers Primary Care Provider: Finn Schmidt Admit Provider: Pradeep Pringle Attending Provider: Pradeep Pringle
== END 2024-02-22 16:31 | disposition home or self-care (01) ==
LOC: ER 22:53 → 2ND 02-22 00:17
PROVIDERS: Nurse Practitioner Family; Physician Assistant; Admitting Provider Internal Medicine; Emergency Provider Student in an Organized Health Care Education/Training Program; PCP Family Medicine; Visit Provider Internal Medicine
DX: R51.9 Headache, unspecified (principal); Z79.899 Other long term (current) drug therapy; Z87.891 Personal history of nicotine dependence; R93.0 Abnormal findings on diagnostic imaging of skull and head, not elsewhere classified
CPT/HCPCS: 36415; 70450; 70553; 71045; 80053; 80061; 83735; 84100; 84443; 84484; 85025; 85610; 93005; 99285; A9576; G0378; J0131; J1885; J2930; J7120